=== PATIENT | male | born 1945 | race Caucasian/White ===

== ENCOUNTER → 2023-04-19 | Outpatient (CLI) | payer OTHER ==
[~2023-04-19] MED LIST: HCTZ 25MG25 MG PO; ILOTYCIN5 MG/GM OP; LISINOPRIL; PRILOSEC 20MG20 MG PO; ZOCOR 20MG20 MG PO
== END ==
LOC: COL.LAB 08:21
DX: J30.1 Allergic rhinitis due to pollen (principal)